=== PATIENT | female | born 1955 | race Hispanic/Latino ===

== ENCOUNTER 2021-08-11 16:29 | Outpatient (CLI) | payer MEDICARE | END 2021-08-11 16:30 | disposition home or self-care (01) | LOC: CSHRAD 16:29 | PROVIDERS: ATTEND Student in an Organized Health Care Education/Training Program | DX: M25.562 Pain in left knee (principal); M25.561 Pain in right knee; M85.861 Other specified disorders of bone density and structure, right lower leg; M11.262 Other chondrocalcinosis, left knee ==

== ENCOUNTER 2023-05-14 08:56 | Outpatient (CLI) | payer MEDICARE | END 2023-05-14 08:57 | disposition home or self-care (01) | LOC: CSHMAMMO 08:56 | PROVIDERS: ATTEND Family Medicine | DX: N63.20 Unspecified lump in the left breast, unspecified quadrant (principal) | CPT/HCPCS: 76642; 77066; G0279 ==

== ENCOUNTER 2023-10-13 13:54 | Outpatient (CLI) | payer MEDICARE | END 2023-10-13 13:55 | disposition home or self-care (01) | LOC: CSHRAD 13:54 | PROVIDERS: ATTEND Family Medicine | DX: M47.12 Other spondylosis with myelopathy, cervical region (principal); M47.22 Other spondylosis with radiculopathy, cervical region; Z98.1 Arthrodesis status; M53.2X2 Spinal instabilities, cervical region | CPT/HCPCS: 72050 ==

== ENCOUNTER 2023-11-11 11:42 | Outpatient (CLI) | payer MEDICARE | END 2023-11-11 11:43 | disposition home or self-care (01) | LOC: CSHRAD 11:42 | PROVIDERS: ATTEND Family Medicine | DX: M25.572 Pain in left ankle and joints of left foot (principal); M77.52 Other enthesopathy of left foot and ankle ==

== ENCOUNTER 2024-12-20 09:09 | Outpatient (CLI) | payer MEDICARE, OTHER ==
[~2024-12-20 09:09] MED LIST: Iopamidol 300 61% 100 ML VIAL FS ONE
[2024-12-20 10:23] LABS: Estimated GFR - POC 70.0
== END 2024-12-20 09:10 | disposition home or self-care (01) ==
LOC: CSHCT 09:09
PROVIDERS: ATTEND Family Medicine
DX: R10.10 Upper abdominal pain, unspecified (principal); N28.9 Disorder of kidney and ureter, unspecified; Z98.890 Other specified postprocedural states
CPT/HCPCS: 74178; 82565